=== PATIENT | male | born 1995 | race Caucasian/White ===

== ENCOUNTER 2017-01-10 07:54 | Emergency (ER) | payer OTHER ==
[~2017-01-10] VITALS: Ht 188 cm; Wt 72.0 kg
[~2017-01-10 07:54] MED LIST: ADDE30XR; HYDR-3533 PO
[2017-01-10 07:59] VITALS: BP 123/85; PULSE 105; RESP 14; TEMP 98.5; O2SAT 99
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
[2017-01-10] MEDS ORDERED: CEPH-460 PO (08:13)
[2017-01-10] MEDS ORDERED: IBUP-232 PO (08:13)
== END 2017-01-10 08:39 | disposition left against medical advice (07) ==
LOC: NEPE 07:54
DX: S60.512A Abrasion of left hand, initial encounter (principal); S60.511A Abrasion of right hand, initial encounter; S20.91XA Abrasion of unspecified parts of thorax, initial encounter; S40.212A Abrasion of left shoulder, initial encounter; V28.4XXA Motorcycle driver injured in noncollision transport accident in traffic accident, initial encounter
CPT/HCPCS: 99283